=== PATIENT | male | born 1985 | race African-American/Black ===

== ENCOUNTER → 2017-01-04 | Outpatient (CLI) | payer BC, OTHER ==
[~2017-01-04] VITALS: Ht 180.3 cm; Wt 81.2 kg
[~2017-01-04] MED LIST: IBUPROFEN 400400 M2 PO; MOBIC15 MG PO
--- NOTE | ~2017-01-04 | HPC ---
[facility] [address] [place] [address] PAIN MANAGEMENT CONSULTATION Name: NAVARRO PIZARROROSANGELA Room #: REG [facility] Javier#: [id number] Admission: 01/04/17 Attend Phys: Manpreet Lees DO Discharge: Date of : 81 Report #: [id number] THIS REPORT FOR: //name// CC: Gabriel Lees DATE OF SERVICE: 01/04/2017 The patient is a pleasant 31-year-old gentleman, seen in consultation regarding pain "for years" in left gluteal area, radiating into the hip, posterior thigh, to the lateral calf. Exacerbated with walking. Has some subjective paresthesia and burning with a numbness sensation in the affected area. Denies any specific weakness, saddle anesthesia or bowel or bladder continence changes. The patient notes for the past year and a half he has also had some left neck symptoms. Trigger point injections helped to some degree, has paresthesia in somewhat of a C7 distribution going into his thumb and index finger. Describes his pain as continuous, shooting, aching, sharp and stabbing, rates anywhere from a 5 to a 10 on a Visual Analog Scale. Again, notes the axial back pain and radicular component is exacerbated with turning, extension and stretching and massage does afford some transient relief. REVIEW OF SYSTEMS: Complete review of systems attached to chart and gone over with the patient. He is . He is an RN, a [employer] student. Does not smoke, drink alcohol to excess. A 12-point review of systems is fairly unremarkable. He has enjoyed remarkably good health. He has been working presently, not involved in Workers' Compensation or disability income. Pain impact score averages 35/70. PHYSICAL EXAMINATION: Reveals a 5 feet 11 inches, 165 pounds gentleman in moderate distress. BMI is 25 kilograms per meter squared. Blood pressure is 112/66, pulse 62, respirations are 14. Subjective pain score is 8 on a Visual Analog Scale. Cranial nerves 2-12 are grossly intact. Pupils are equal and react to light and accommodation. Extraocular muscles are intact. There is no nystagmus with lateral gaze deviation. Thyroid is unremarkable. Upper extremity strength is generally preserved. Heart is regular and rhythmical without murmur. Lungs clear to auscultation. Rises from chair using armrest. Gait is tandem. Has diffuse tenderness in the low back, left gluteus. Lower extremity strength is symmetric, but resistance testing to the left hip flexion and lower extremity extension exacerbates low back pain and left hip. Passive rotation of the hips is unremarkable. Abdoulaye test is negative. External rotation of the left leg does exacerbate some radicular pain compatible with positive pyriformis syndrome. Modestly positive straight leg raise on the left. The patient has multiple diagnostic studies, MRI of the lumbar spine from [address] [address] PAIN MANAGEMENT CONSULTATION Name: NAVARRO PIZARROROSANGELA [facility] [id number] Admission: 01/04/17 Attend Phys: Manpreet Lees DO Discharge: Date of : 81 Report #: [id number] 1985 notes L4-L5 to have a disk bulge, which mildly flattens the anterior thecal sac. There is mild bilateral neural foraminal narrowing, left greater than right, at this level. This likely corresponds with left L4 radicular symptoms. CT of the left hip and pelvis from 02/24/2013 notes 3 mm osseous fragment along the superior anterior left acetabular rim, thought to represent a tiny chip fracture of indeterminate age versus a non-unified ossification center. MRI of the left shoulder shows mild supraspinatus tendinosis with mild distal bursal scuffing. This was accomplished on 10/03/2013. It does not correspond with significant left shoulder pain at this time. MRI of the brachial plexus (left) 12/02/2014 shows some scattered cervical lymph nodes, no vascular abnormalities, normal unenhanced MRI examination of the left brachial plexus is noted. Cervical flexion and extension x-rays from 06/29/2014 do note 2 mm retrolisthesis C4 on C5 and C5 on C6 in neutral with extension, which reduces to zero in flexion. ASSESSMENT: 1. Symptomatic lumbar radiculopathy, left L4 radicular pattern. 2. Piriformis syndrome. 3. Cervical spondylosis. RECOMMENDATIONS: 1. Lumbar epidural injection under fluoroscopy today at L4-L5. 2. Meloxicam 15 mg 1 a day. 3. Follow up in 3-4 weeks to reevaluate. Cancel if doing well. PROCEDURE: Lumbar epidural injection under fluoroscopy. DESCRIPTION OF PROCEDURE: After both written and informed consent to include risk of spinal cord damage, increased pain, weakness and dural puncture, the patient was taken to the fluoroscopy suite, placed in the prone position. After sterile prep and drape, a skin wheal with lidocaine was raised. A 22-gauge epidural Tuohy needle was inserted in the midline at L4-L5 with good loss to resistance. Negative aspiration for cerebrospinal fluid or blood was noted. Then, 1 mL of Omnipaque under biplanar fluoroscopy showed good spread within the epidural space. This was followed with 80 mg of triamcinolone plus 1 mL of 1.5% preservative-free Xylocaine, 0.5 mL Xylocaine was then injected to flush the needle; it was removed. The patient was monitored for an appropriate period of time and discharged in good and stable condition. <ELECTRONICALLY SIGNED> By: Manpreet Lees DO 01/05/17 0926 [id number] Manpreet Lees DO /nt
[2017-01-04 10:54] VITALS: BP 112/66
== END | disposition home or self-care (01) ==
LOC: PAIN 10:05
DX: M54.16 Radiculopathy, lumbar region (principal); M47.892 Other spondylosis, cervical region; G57.02 Lesion of sciatic nerve, left lower limb

== ENCOUNTER → 2017-09-10 | Outpatient (CLI) | payer BC, OTHER ==
[~2017-09-10] VITALS: Ht 180.3 cm; Wt 81.8 kg
--- NOTE | ~2017-09-10 | HPC ---
[facility] [place] [address] PAIN MANAGEMENT CONSULTATION Name: NAVARRO PIZARROROSANGELA Room #: REG [facility] Eva.#: [id number] Admission: 09/10/17 Attend Phys: Manpreet Lees DO Discharge: Date of : 81 Report #: [id number] THIS REPORT FOR: //name// CC: Gabriel Lees The patient is a very pleasant 32-year-old gentleman, prior seen in consultation 01/04/2017, we did a single epidural injection with excellent improvement of lumbar radicular pain. He returns to pain clinic today with a different complaint. He is having ongoing pain in the left shoulder, posterior tricep with paresthesia and tingling. Symptoms are exacerbated with cervical rotation. This has been ongoing for some time and seems to be getting worse. The patient states he has been seen by orthopedics and neurology with little etiology found. PHYSICAL EXAMINATION: Shows a pleasant 32-year-old gentleman. Vital signs are stable as noted in the EMR. Cervical range of motion is full, though cervical rotation of the left exacerbates pain into the left axilla and deltoid. Paresthesia into the hand. Triceps reflex may be slightly diminished on the left compared to the right. Brachioradialis and biceps are symmetric. Tinel's is negative. Hand grasp is good. With extension of the left arm, I can still feel a radial pulse; when the arm is slightly flexed and cervical spine turned to the left, the pulse diminishes. The same procedure on the right side does not reproduce diminution of the pulse. There may be a component of thoracic outlet syndrome here. ASSESSMENT: 1. Symptomatic cervical radiculopathy by clinical exam and history. 2. Possible component of thoracic outlet syndrome. PROCEDURE: Cervical epidural injection under fluoroscopy. PROCEDURE NOTE: After written and informed consent was obtained including risk of dural puncture, spinal cord trauma, paralysis and increased pain, the patient was taken to the fluoroscopy suite and placed in the prone position, with appropriate abdominal bolstering, neck was flexed, palms under the thighs. Skin was prepped with ChloraPrep. Sterile draping was applied. Skin wheal with 1% Xylocaine was raised. A 22-gauge 3-1/2 inch epidural Tuohy needle was placed via a midline approach at the C7-T1 interspace, advanced under biplanar fluoroscopy using continuous loss of resistance. With appropriate loss of resistance at the expected depth on lateral view, the glass loss of resistance syringe was disconnected. A low volume extension tubing was connected to the needle and a 5 mL syringe. Negative aspiration for cerebrospinal fluid or blood was noted. A 1 mL of Omnipaque was injected which showed spread within the epidural space on biplanar fluoroscopy. This was followed with 80 mg of triamcinolone plus 1 mL of 1.5% preservative Xylocaine. Needle was withdrawn to [address] [address] PAIN MANAGEMENT CONSULTATION Name: JUAREZNAVARROSeble IRAHETA Room #: REG [facility] Herrera#: [id number] Admission: 09/10/17 Attend Phys: Manpreet Lees DO Discharge: Date of : 81 Report #: [id number] the interspinous ligament, 0.5 mL of Xylocaine was used to flush the needle. The needle was then completely withdrawn. The area was cleansed. Band-Aid was applied. The patient was allowed to move off the procedure table and ambulated to the recovery room, monitored for an appropriate period of time, discharged in good and stable condition. 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 The patient discharged in good and stable condition. He has an EMG scheduled for next week. I did request that those results to be forwarded to our clinic. <ELECTRONICALLY SIGNED> By: Manpreet Lees DO 09/12/17 0725 [id number] Manpreet Lees DO /nt
[2017-09-10 10:50] VITALS: BP 132/71
== END | disposition home or self-care (01) ==
LOC: PAIN 06:40
DX: M54.12 Radiculopathy, cervical region (principal); G89.29 Other chronic pain; Z88.8 Allergy status to other drugs, medicaments and biological substances; Z98.890 Other specified postprocedural states